=== PATIENT | male | born 1980 | race Caucasian/White ===

== ENCOUNTER → 2018-04-15 | Outpatient (CLI) | payer OTHER ==
[~2018-04-15] MED LIST: IOHEXOL 240 MG/ML 50ML VIAL. ONE; IOHEXOL 240 MG/ML 50ML VIAL. PO ONE; IOHEXOL 300 MG/ML 75 ML VIAL. IV ONE
--- NOTE | 2018-04-15 15:17 | RAD ---
CT of the abdomen and pelvis with contrast 04/15/2018 INDICATION: Inguinal hernia. COMPARISON STUDY: None available. TECHNIQUE: Multidetector CT imaging of the abdomen and pelvis is obtained following the administration of IV contrast. FINDINGS: The liver is unremarkable in appearance. The gallbladder is unremarkable in appearance. The spleen is unremarkable in appearance. The adrenal glands are unremarkable in appearance. Pancreas is grossly unremarkable in appearance. The kidneys are unremarkable in appearance. There is no evidence of bowel obstruction. No evidence of acute inflammatory change involving visualized bowel is identified. Mildly increased stool is noted throughout the colon. Correlate with evidence of constipation. The appendix is unremarkable in appearance. Small bowel is nondilated. Bladder is grossly unremarkable. No free fluid or significant free air seen in the abdomen or pelvis. No evidence of inguinal hernia is identified. No evidence of acute osseous abnormality is seen. IMPRESSION: 1. No evidence of inguinal hernia or other acute intra-abdominal abnormality is identified. 2. Mild increased stool throughout the colon. Correlate with evidence of constipation. CT DOSING PQRS STATEMENT: One or more of the following individualized dose reduction techniques were utilized for this examination: 1. Automated exposure control 2. Adjustment of the mA and/or kV according to patient size 3. Use of iterative reconstruction technique Electronically signed by: Sánchez Londono MD (04/15/2018 3:13 PM) [facility]
== END | disposition home or self-care (01) ==
LOC: CT 10:49
PROVIDERS: ATTEND Neuromusculoskeletal Medicine & OMM
DX: K40.90 Unilateral inguinal hernia, without obstruction or gangrene, not specified as recurrent (principal); I10 Essential (primary) hypertension
CPT/HCPCS: 74177; Q9966; Q9967

== ENCOUNTER 2018-07-25 07:40 | Emergency (ER) | payer OTHER ==
[~2018-07-25] VITALS: Ht 190.5 cm; Wt 102.1 kg
[2018-07-25] MEDS ORDERED: LIDOCAINE 1% Multi-Dose 20 ML VIAL. ONE (07:44)
[2018-07-25] MEDS ORDERED: LIDOCAINE 2% 20 ML VIAL. IJ ONE (07:45)
--- NOTE | 2018-07-25 08:19 | PHYS DOC ---
Adult General Chief Complaint Chief Complaint: finger laceration HPI HPI 38-year-old male presents with right second finger injury. The patient got his index finger caught in a roller press at work. He had immediate laceration and possible partial degloving of the distal right index finger. He had immediate pain and bleeding. He applied pressure and came to the emergency room. He denies any other injuries. Review of Systems Review of Systems Constitutional: Denies fever or chills [] Eyes: Denies change in visual acuity, redness, or eye pain [] HENT: Denies nasal congestion or sore throat [] Respiratory: Denies cough or shortness of breath [] Cardiovascular: No additional information not addressed in HPI [] GI: Denies abdominal pain, nausea, vomiting, bloody stools or diarrhea [] : Denies dysuria or hematuria [] Musculoskeletal: Right index finger injury[] Integument: Denies rash or skin lesions [] Neurologic: Denies headache, focal weakness or sensory changes [] Endocrine: Denies polyuria or polydipsia [] All other systems were reviewed and found to be within normal limits, except as documented in this note. Current Medications Current Medications Current Medications Medications (Trade) Dose Ordered Sig/Crystal Start Time Stop Time Status Last Admin Dose Admin Lidocaine HCl 20 ml STK-MED ONCE 07/25/18 07:44 07/25/18 07:45 DC Allergies Allergies Allergies Coded Allergies Type Severity Reaction Last Updated Verified No Known Drug Allergies 04/15/18 No Physical Exam Physical Exam Constitutional: Well developed, well nourished, no acute distress, non-toxic appearance. [] HENT: Normocephalic, atraumatic, bilateral external ears normal, oropharynx moist, no oral exudates, nose normal. [] Eyes: PERRLA, EOMI, conjunctiva normal, no discharge. [] Neck: Normal range of motion, no tenderness, supple, no stridor. [] Cardiovascular:Heart rate regular rhythm, no murmur [] Lungs & Thorax: Bilateral breath sounds clear to auscultation [] Abdomen: Bowel sounds normal, soft, no tenderness, no masses, no pulsatile masses. [] Skin: Warm, dry, no erythema, no rash. [] Back: No tenderness, no CVA tenderness. [] Extremities: Deep laceration of the distal half of the right index finger with deep tissue trauma, tendons intact, normal range of motion, neurovascularly intact.[] Neurologic: Alert and oriented X 3, normal motor function, normal sensory function, no focal deficits noted. [] Psychologic: Affect normal, judgement normal, mood normal. [] EKG EKG [] Radiology/Procedures Radiology/Procedures [] Impressions: Right index finger, 3 views, 07/25/2018: HISTORY: Injury There is a soft tissue defect involving the distal aspect of the finger. No underlying fracture or dislocation is identified. IMPRESSION: No acute bony abnormality is detected. Electronically signed by: Farshad Mclean MD (07/25/2018 8:49 AM) [facility] DICTATED AND SIGNED BY: FARSHAD MCLEAN MD DATE: 07/25/18847 CC: YUAN DUNBAR DO; NAYE WALLS DO Course & Med Decision Making Course & Med Decision Making Pertinent Labs and Imaging studies reviewed. (See chart for details) On arrival the patient had an obvious significant wound to the right index finger. I was able to establish that his tendon was intact and he was neurovascularly intact. I then did a digital block with 2% lidocaine without epinephrine. I also placed a finger tourniquet. During the washing of the wound with Hibiclens and saline solution, it became apparent that there was significant soft tissue damage and a section of skin missing that would not allow for complete closure of the wound. The patient has a partial soft tissue degloving of the right index finger. I discussed this with Dr. Guerrier, orthopedics at [facility] and he has recommended the patient be transferred to a facility with a hand surgeon. The patient did prefer . I have talked with [facility] and Dr. Pradeep Randall has accepted the patient for transfer. They requested he go through the emergency room. I made patient aware of this and he would like to go by personal vehicle. He has someone that would drive for him. We have given him 1 g cefazolin IM. The tourniquet was removed and the finger was wrapped with a nonadherent dressing and moistened gauze covered with dry puffy wrapping. He is stable for transfer at this time [] Dragon Disclaimer Dragon Disclaimer This electronic medical record was generated, in whole or in part, using a voice recognition dictation system. Departure Departure: Impression: Primary Impression: Degloving injury of hand Disposition: 02 XFER [facility]M HOSP Condition: STABLE Referrals: NAYE WALLS DO (PCP) Problem Qualifiers Primary Impression: Degloving injury of hand Encounter type: initial encounter Laterality: right Qualified Codes: S61.401A - Unspecified open wound of right hand, initial encounter YUAN DUNBAR DO Jul 25, 2018 08:19
[2018-07-25 08:44] VITALS: BP 130/71
--- NOTE | 2018-07-25 08:52 | RAD ---
Right index finger, 3 views, 07/25/2018: HISTORY: Injury There is a soft tissue defect involving the distal aspect of the finger. No underlying fracture or dislocation is identified. IMPRESSION: No acute bony abnormality is detected. Electronically signed by: Farshad Mclean MD (07/25/2018 8:49 AM) [facility]
[2018-07-25] MEDS ORDERED: ceFAZolin IM 1 GM VIAL IM ONE (09:00)
[2018-07-25] MEDS ORDERED: HYDROcodone/APAP 10/325 1 TAB TABLET PO ONE (09:30)
== END 2018-07-25 09:40 | disposition short-term general hospital (02) ==
LOC: ER 07:40
DX: S61.210A Laceration without foreign body of right index finger without damage to nail, initial encounter (principal); W23.0XXA Caught, crushed, jammed, or pinched between moving objects, initial encounter; Y93.89 Activity, other specified; Y92.89 Other specified places as the place of occurrence of the external cause; Y99.8 Other external cause status
CPT/HCPCS: 64450; 73140; 99284-25; J2001